=== PATIENT | female | born 1980 | race Caucasian/White ===

== ENCOUNTER 2021-09-20 16:15 | Outpatient (RCR) | payer OTHER, SELFPAY | END 2022-01-24 09:21 | disposition home or self-care (01) | PROVIDERS: PCP Physician Assistant Medical; Visit Provider Emergency Medicine | DX: H81.11 Benign paroxysmal vertigo, right ear (principal); Z51.89 Encounter for other specified aftercare | CPT/HCPCS: 97112; 97162 ==

== ENCOUNTER 2021-10-31 08:36 | Outpatient (CLI) | payer OTHER, SELFPAY ==
[2021-10-31 14:49] LABS: Albumin* 4.6 g/dL (3.3-5.0); Chloride* 104 mmol/L (96-114)
[2021-10-31 14:50] LABS: Potassium* 4.4 mmol/L (3.6-5.1); Sodium* 139 mmol/L (135-149)
[2021-10-31 14:52] LABS: Aspartate Amino Transferase* 25 U/L (12-35); Bilirubin Total* 0.3 mg/dL (0.1-1.5); Blood Urea Nitrogen* 15 mg/dL (5-24); Carbon Dioxide* 25 mmol/L (20-32); Cholesterol* 201 mg/dL (90-199); Creatinine* 0.7 mg/dL (0.5-1.5); Estimated Glomerular Filt Rate 111 ml/min; Glucose* 104 mg/dL (60-115); Total Protein* 7.2 g/dL (6.0-8.3)
[2021-10-31 14:53] LABS: Alanine Aminotransferase* 18 U/L (4-35); Alkaline Phosphatase* 54 U/L (40-150); Calcium* 9.2 mg/dL (8.4-10.6); HDL Cholesterol* 40 mg/dL (>=50); LDL Cholesterol Calculated 115 mg/dL (<100); Triglycerides* 230 mg/dL (40-149)
[2021-10-31 15:19] LABS: Hepatitis B Surface Antigen* Negative (Negative)
[2021-10-31 15:37] LABS: Hepatitis C Virus Antibody* Negative (Negative)
[2021-10-31 15:41] LABS: Hepatitis B Surface Antibody* Positive (Negative)
[2021-10-31 22:56] LABS: HIV 1/2/P24 Combo Screen* Negative (Negative)
== END 2021-10-31 08:37 | disposition home or self-care (01) ==
PROVIDERS: PCP Physician Assistant Medical; Visit Provider Physician Assistant Medical
DX: Z00.00 Encounter for general adult medical examination without abnormal findings (principal); E03.8 Other specified hypothyroidism; E06.3 Autoimmune thyroiditis; F32.9 Major depressive disorder, single episode, unspecified; R79.89 Other specified abnormal findings of blood chemistry; F41.9 Anxiety disorder, unspecified; Z13.6 Encounter for screening for cardiovascular disorders; Z13.0 Encounter for screening for diseases of the blood and blood-forming organs and certain disorders involving the immune mechanism
CPT/HCPCS: 80053; 80061; 84443; 86701; 86702; 86703; 86706; 86803; 87340; 87624; 88175

== ENCOUNTER 2021-11-22 08:13 | Outpatient (CLI) | payer OTHER, SELFPAY ==
[2021-11-22 13:38] LABS: Albumin* 4.9 g/dL (3.3-5.0); Chloride* 103 mmol/L (96-114); Potassium* 4.4 mmol/L (3.6-5.1); Sodium* 140 mmol/L (135-149)
[2021-11-22 13:40] LABS: Creatinine* 0.7 mg/dL (0.5-1.5); Estimated Glomerular Filt Rate 111 ml/min
[2021-11-22 13:41] LABS: Alanine Aminotransferase* 19 U/L (4-35); Alkaline Phosphatase* 59 U/L (40-150); Aspartate Amino Transferase* 23 U/L (12-35); Bilirubin Total* 0.4 mg/dL (0.1-1.5); Blood Urea Nitrogen* 14 mg/dL (5-24); Carbon Dioxide* 26 mmol/L (20-32); Glucose* 111 mg/dL (60-115); Total Protein* 7.9 g/dL (6.0-8.3)
[2021-11-22 13:49] LABS: Vitamin D 25 Hydroxy* 47 ng/mL (30-80)
[2021-11-22 14:07] LABS: Ferritin* 51.6 ng/mL (6.24-137.0)
[2021-11-23 14:47] LABS: Estradiol Premenol Female 60 pg/mL
[2021-11-29 12:28] LABS: Sex Hormone Binding Globulin 30 nmol/L (25-122); Testosterone Bioavailable 6.2 ng/dL (2.8-16.5); Testosterone, Free LC-MS/MS 1.9 pg/mL (1.1-5.8); Testosterone, LC-MS/MS 12 ng/dL (9-55)
== END 2021-11-22 08:14 | disposition home or self-care (01) ==
PROVIDERS: PCP Physician Assistant Medical; Visit Provider Physician Assistant Medical
DX: R53.83 Other fatigue (principal); R73.09 Other abnormal glucose; R79.89 Other specified abnormal findings of blood chemistry; D50.9 Iron deficiency anemia, unspecified
CPT/HCPCS: 80053; 82306; 82670; 82728; 84270; 84402; 84403; 84443

== ENCOUNTER 2022-01-03 15:26 | Outpatient (CLI) | payer OTHER, SELFPAY ==
[2022-01-03 22:26] LABS: Iron* 102 ug/dL (37-170)
[2022-01-03 22:36] LABS: Percent Iron Saturation 31 % (20-50); Total Iron Binding Capacity 323 ug/dL (265-497)
== END 2022-01-03 15:27 | disposition home or self-care (01) ==
LOC: LKVREF 15:27
PROVIDERS: PCP Physician Assistant Medical; Visit Provider Physician Assistant Medical
DX: R53.83 Other fatigue (principal); D50.9 Iron deficiency anemia, unspecified; L65.9 Nonscarring hair loss, unspecified; E06.3 Autoimmune thyroiditis; R79.89 Other specified abnormal findings of blood chemistry
CPT/HCPCS: 83540; 83550

== ENCOUNTER 2022-02-20 14:30 | Outpatient (RCR) | payer OTHER, SELFPAY | END 2022-03-26 13:46 | disposition home or self-care (01) | PROVIDERS: PCP Physician Assistant Medical; Visit Provider Physician Assistant Medical | DX: R42 Dizziness and giddiness (principal); Z51.89 Encounter for other specified aftercare | CPT/HCPCS: 97110; 97162; 97530 ==

== ENCOUNTER 2022-03-26 16:05 | Outpatient (CLI) | payer BC, SELFPAY ==
--- NOTE | 2022-03-26 16:15 | CRLHL7_ITS ---
For Patients: As a result of the Century Cures Act, medical imaging exams and procedure reports are released immediately into your electronic medical record. You may view this report before your referring provider. If you have questions, please contact your health care provider. BILATERAL SCREENING MAMMOGRAM WITH COMPUTER-AIDED DETECTION AND TOMOSYNTHESIS TECHNIQUE: CC and MLO views were obtained. These mammographic images have been obtained using full-field digital technique. These mammographic images were interpreted with the benefit of computer-aided detection. Breast Tomosynthesis was used in this interpretation. COMPARISON FILM: 03/21/21, 01/18/2020. FINDINGS: The breasts are extremely dense, which lowers the sensitivity of mammography IMPRESSION: There is no radiographic evidence for malignancy. ASSESSMENT: BI-RADS Category 1: Negative RECOMMENDATION: Routine screening mammogram in 1 year. A lay language report of this examination will be provided to the patient. Matthew Pittman M.D. Diagnostic Radiologist [email or web address] Transcribed: 2:33 pm DW/Dictated by: Matthew Pittman MD @ 03/27/2022 12:36:00 PM (Electronically Signed)
== END 2022-03-26 16:06 | disposition home or self-care (01) ==
LOC: MAMMO 16:07
PROVIDERS: PCP Physician Assistant Medical; Visit Provider Physician Assistant Medical
DX: Z12.31 Encounter for screening mammogram for malignant neoplasm of breast (principal); R92.2 Inconclusive mammogram
CPT/HCPCS: 77063; 77067

== ENCOUNTER 2023-04-09 09:28 | Outpatient (CLI) | payer BC, SELFPAY | END 2023-04-09 09:29 | disposition home or self-care (01) | PROVIDERS: PCP Physician Assistant Medical; Visit Provider Physician Assistant Medical | DX: Z13.220 Encounter for screening for lipoid disorders (principal); Z13.0 Encounter for screening for diseases of the blood and blood-forming organs and certain disorders involving the immune mechanism; E06.3 Autoimmune thyroiditis | CPT/HCPCS: 80053; 80061; 82306; 84443 ==

== ENCOUNTER 2023-07-16 08:59 | Outpatient (CLI) | payer BC, SELFPAY ==
--- NOTE | 2023-07-16 09:15 | MM_ITS ---
Patient: LISET WOLFE Facility:?[facility] Patient ID:?[id number] Site Patient ID:?[id number] Site :?[id number] Study:?XRay-Breast Bilateral 3D W/CAD-07/16/2023 9:28:00 AM Ordering Physician:Yen Cevallos Final Report: BILATERAL SCREENING MAMMOGRAM WITH COMPUTER-AIDED DETECTION AND TOMOSYNTHESIS TECHNIQUE: CC and MLO views were obtained. These mammographic images have been obtained using full-field digital technique. These mammographic images were interpreted with the benefit of computer-aided detection. Breast Tomosynthesis was used in this interpretation. COMPARISON FILM: 03/26/22, 03/21/21, 01/18/20. FINDINGS: The breasts are heterogeneously dense, which may obscure small masses. IMPRESSION: There is no radiographic evidence for malignancy. ASSESSMENT: BI-RADS Category 1: Negative RECOMMENDATION: Routine screening mammogram in 1 year. A lay language report of this examination will be provided to the patient. Matthew Pittman M.D. Diagnostic Radiologist [email or web address] DSM/sp R& Transcribed: 5:27 p.m. SP/Dictated by: Matthew Pittman MD @ 07/16/2023 10:34:00 AM Signed by:?Matthew Pittman MD @07/16/2023 5:45:14 PM (Electronic Signature)
== END 2023-07-16 09:00 | disposition home or self-care (01) ==
LOC: MAMMO 09:00
PROVIDERS: PCP Physician Assistant Medical; Visit Provider Physician Assistant Medical
DX: Z12.31 Encounter for screening mammogram for malignant neoplasm of breast (principal); R92.2 Inconclusive mammogram
CPT/HCPCS: 77063; 77067

== ENCOUNTER 2024-11-12 13:51 | Outpatient (CLI) | payer BC, SELFPAY | END 2024-11-12 13:52 | disposition home or self-care (01) | PROVIDERS: PCP Physician Assistant Medical; Visit Provider Physician Assistant Medical | DX: Z00.00 Encounter for general adult medical examination without abnormal findings (principal); R53.83 Other fatigue | CPT/HCPCS: 80053; 80061; 82306; 82607; 82728; 84443 ==

== ENCOUNTER 2024-11-24 14:30 | Outpatient (RCR) | payer BC, SELFPAY | END 2025-02-02 11:00 | disposition home or self-care (01) | PROVIDERS: PCP Physician Assistant Medical; Visit Provider Physician Assistant Medical | DX: M25.551 Pain in right hip (principal); M54.50 Low back pain, unspecified; Z51.89 Encounter for other specified aftercare | CPT/HCPCS: 97110; 97140; 97161 ==

== ENCOUNTER 2024-12-20 09:40 | Outpatient (CLI) | payer BC, SELFPAY ==
--- NOTE | 2024-12-20 10:46 | P.ANES_ITS ---
Anesthesia Charges Start Date/Time Anesthesia Start Date: 12/20/24 Anesthesia Start Time: 10:08 Stop Date/Time Anesthesia Stop Date: 12/20/24 Anesthesia Stop Time: 10:42 Coding CPT Codes CPT Codes: ANGY LWR INTST SCR COLSC - 49877 ([id number]) P2 - PATIENT W/MILD SYST DISEASE, QK - DESIGN CENTER CONSULTANT 2-4 CNCRNT ANES PROC, QX - DIRECTOR STYLE SVC W/ MD MED DIRECTION
--- NOTE | 2024-12-20 10:46 | W.ANESCHARGE ---
Anesthesia Charges Start Date/Time Anesthesia Start Date: 12/20/24 Anesthesia Start Time: 10:08 Stop Date/Time Anesthesia Stop Date: 12/20/24 Anesthesia Stop Time: 10:42 Coding CPT Codes CPT Codes: ANGY LWR INTST SCR COLSC - [id number] ([id number]) P2 - PATIENT W/MILD SYST DISEASE, QK - REAL ESTATE COORDINATOR 2-4 CNCRNT ANES PROC, QX - PIG HANDLER SVC W/ MD MED DIRECTION
--- NOTE | 2024-12-20 10:54 | P.ANES_ITS ---
Anesthesia Charges Start Date/Time Anesthesia Start Date: 12/20/24 Anesthesia Start Time: 10:08 Stop Date/Time Anesthesia Stop Date: 12/20/24 Anesthesia Stop Time: 10:42 Coding CPT Codes CPT Codes: ANGY LWR INTST SCR COLSC - [id number] ([id number]) QK - UNIT COORDINATOR 2-4 CNCRNT ANGY PROC, QX - SPINNING OPERATOR SVC W/ MD MED DIRECTION, P2 - PATIENT W/MILD SYST DISEASE
--- NOTE | 2024-12-20 10:54 | W.ANESCHARGE ---
Anesthesia Charges Start Date/Time Anesthesia Start Date: 12/20/24 Anesthesia Start Time: 10:08 Stop Date/Time Anesthesia Stop Date: 12/20/24 Anesthesia Stop Time: 10:42 Coding CPT Codes CPT Codes: ANGY LWR INTST SCR COLSC - [id number] ([id number]) QK - BILLET INSPECTOR 2-4 CNCRNT ANGY PROC, QX - MOLDING FITTER SVC W/ MD MED DIRECTION, P2 - PATIENT W/MILD SYST DISEASE
== END 2024-12-20 09:41 | disposition home or self-care (01) ==
LOC: OP CLINIC 09:40
PROVIDERS: PCP Physician Assistant Medical; Visit Provider Surgery
DX: Z12.11 Encounter for screening for malignant neoplasm of colon (principal); Z83.719 Family history of colon polyps, unspecified
CPT/HCPCS: 00812; 45378; J2704